=== PATIENT | female | born 2000 ===

== ENCOUNTER 2025-07-10 09:29 | Outpatient (CLI) | payer MEDICAID, SELFPAY ==
--- NOTE | 2025-07-16 11:59 | W.PM.SLEEP ---
Sleep Study Details Details Interpreting Provider: Min Date of Sleep Study: 07/10/25 Sleep Study Details: STUDY TYPE:? home unattended ? BMI:? 24.96 ORDERING PROVIDER:? Min INDICATION:? concern for sleep apnea ? SLEEP SUMMARY:? 407 minutes monitored RESPIRATORY SUMMARY:? AHI 2.4 per rule 1A, 1.5 per CMS guideline Low oxygen 90 Snoring 96% PERIODIC LIMB MOVEMENTS OF SLEEP:? not recorded CARDIAC:? range 53-100, mean 67.3 IMPRESSION:? this study does not demonstrate clinically significant obstructive sleep apnea. Only diagnosis is primary snoring. RECOMMENDATION: If sleep disorder strongly suspected recommend in-lab study or repeat study with sedative hypnotic
== END 2025-07-10 09:30 | disposition home or self-care (01) ==
LOC: SLEEP 09:34
PROVIDERS: Visit Provider Otolaryngology
DX: G47.30 Sleep apnea, unspecified (principal); G47.10 Hypersomnia, unspecified; R06.83 Snoring
CPT/HCPCS: 95806